=== PATIENT | female | born 1950 | race Caucasian/White ===

== ENCOUNTER → 2020-06-28 07:51 | Outpatient (REF) | payer MEDICARE, OTHER, SELFPAY | LOC: ANHLAB 07:51 | PROVIDERS: PCP Family Medicine; Visit Provider Nurse Practitioner | DX: C44.319 Basal cell carcinoma of skin of other parts of face (principal) | CPT/HCPCS: 88305; 88331 ==

== ENCOUNTER 2020-11-02 08:17 | Outpatient (CLI) | payer MEDICARE, OTHER, SELFPAY ==
--- NOTE | ~2020-11-02 | MM_ITS ---
EXAMINATION: MM screening kendall BI w cali HISTORY: Screening mammogram, history of right breast cancer TECHNIQUE: Craniocaudal and mediolateral oblique 3-D tomosynthesis images were obtained and synthetic 2-D images were generated. CAD analysis was submitted and interpreted. COMPARISON: 10/31/2019, 10/07/2018, 10/05/2017 BREAST PARENCHYMAL COMPOSITION: There are scattered areas of fibroglandular density. FINDINGS: There is no evidence of suspicious mass, calcification, or architectural distortion to sugg est malignancy in either breast. There has been no suspicious interval change. IMPRESSION: 1. No mammographic evidence of malignancy. 2. Recommend routine screening mammography in one year. BI-RADS Category 1: Negative Reviewed, dictated and finalized at location A. ZI NITRATOR OPERATOR
== END 2020-11-02 08:18 | disposition home or self-care (01) ==
PROVIDERS: PCP Family Medicine; Visit Provider Family Medicine
DX: Z12.31 Encounter for screening mammogram for malignant neoplasm of breast (principal)
CPT/HCPCS: 77063; 77067

== ENCOUNTER 2021-05-02 11:11 | Emergency (ER) | payer MEDICARE, OTHER, SELFPAY ==
--- NOTE | ~2021-05-02 | XR_ITS ---
EXAMINATION: XR foot RT min 3V EXAM DATE: 05/02/2021 11:44 INDICATION: Trauma about 1 week ago rolled foot/pain lateral on top. Initial encounter. TECHNIQUE: Right foot dorsoplantar, lateral and oblique projections obtained and reviewed. There is no prior study for comparison. FINDINGS: Right metatarsal bones unremarkable. Mild hallux valgus and mild 1st metatarsophalangeal joint primary osteoarthritis. There are no acute fractures or dislocations identified. There is no s ubcutaneous gas. The soft tissue is unremarkable. There are no radiopaque foreign bodies. Tiny ca lcaneal spurs. IMPRESSION: Mild right hallux valgus and mild 1st metatarsophalangeal joint primary osteoarthritis. N o acute findings. Reviewed, dictated and finalized at location B. IMPRESSION: Mild right hallux valgus and mild 1st metatarsophalangeal joint tamiko idalia osteoarthritis. No acute findings.
[2021-05-02 11:30] VITALS: BP 134/64; PULSE 80; RESP 18; TEMP 36.5; O2SAT 98
--- NOTE | 2021-05-02 11:30 | ED.LOWEXIN ---
HPI - Extremity Injury (Lower) General Chief Complaint: Extremity Injury, Lower Stated Complaint: right foot injury Source: patient and RN notes reviewed Mode of arrival: ambulatory History of Present Illness HPI Narrative: This is a 70-year-old woman that presented to urgent care with complaints of right foot pain and swelling status post injury. According to patient approximately last week she was walking her foot slipped and rolled afterwards she developed edema and discomfort to that. Patient did note while she was at home she iced and elevated her foot and took ibuprofen she also took some type of topical medication as opposed to prevents muscle spasms. The patient denies SOB, CP, palpitation, extremity numbness, lightheadedness, dizziness, constipation, diarrhea, chills, or fever. Related Data Home Medications Medication Instructions Recorded Confirmed aspirin 81 mg tablet,delayed 81 mg PO DAILY 06/22/20 05/02/21 release cholecalciferol (vitamin D3) 50 50 mcg PO DAILY 06/22/20 05/02/21 mcg (2,000 unit) capsule multivitamin 5 ml PO DAILY 10/25/20 05/02/21 zinc acetate 50 mg (zinc) capsule 50 mg PO DAILY 10/25/20 05/02/21 Allergies Allergy/AdvReac Type Severity Reaction Status Date / Time doxycycline Allergy Mild LIGHT Verified 10/25/20 09:33 HEADED minocycline Allergy Mild light Verified 10/25/20 09:33 headed Penicillins Allergy Mild unknown Verified 10/25/20 09:33 vancomycin Allergy Mild nausea Verified 10/25/20 09:33 MINOCYCLINE HCL Allergy Mild NAUSEA/LIGHT Uncoded 10/25/20 09:33 HEADED Review of Systems Review of Systems: Narrative: A 14 organ system Review of Systems was performed and pertinent positives included in the HPI, otherwise remaining ROS is negative. [facility] Past Medical History Medical History (Updated 05/02/21 @ 11:48 by LILIAM Murillo) Breast cancer Osteoporosis Surgical History Surgical History H/O lumpectomy H/O: hysterectomy 12/1992 Family History Family History Mother Family history of elevated blood lipids Family history of diabetes mellitus in first degree relative Hypertension Patient's mother is in good health Family history of cardiovascular disease Father Malignant neoplasm of prostate Hypertension Patient's father is in good health Family history of arthritis Sibling Patient's brother is , Onset Age: 39 Social History Social History (Updated 10/25/20 @ 09:34 by Raisa Franklin) Social History: Smoking status: Never smoker Second hand tobacco smoke exposure: No Alcohol intake: never Substance use: never Substance use type: does not use Gender identity (if verbalized by the patient): Female Exam Narrative: Exam Narrative: GENERAL: This is a well-nourished, well-developed patient, in no apparent distress. HEAD: normocephalic, atraumatic. EYES: PERRL. Sclera clear/white. Vision is grossly intact. EARS: External ears normal, auditory canals clear and without drainage, TMs normal without perforation. Hearing grossly intact. NOSE: External nose normal with no obvious nasal discharge, nares without redness, no rhinorrhea. THROAT: Mucous membranes moist, posterior pharynx clear. NECK: Neck supple, non-tender without lymphadenopathy, masses or thyromegaly. CARDIOVASCULAR: Regular rate and rhythm without murmurs, gallops, or rubs. RESPIRATORY: Clear to auscultation. Breath sounds equal bilaterally. No wheezes, rales, or rhonchi. GASTROINTESTINAL: Abdomen soft, non-tender, nondistended. Bowel sounds are active. No hepato-splenomegaly, or palpable masses. No guarding. SKIN: warm, intact with no suspicious lesions or rash, good texture and turgor. NEURO: awake, alert, and oriented to person, place and time. There were no obvious focal neurologic abnormalities. Steady gait EXTREMITIES: Norm
== END 2021-05-02 11:52 | disposition home or self-care (01) ==
PROVIDERS: Emergency Provider Nurse Practitioner; PCP Family Medicine
DX: S93.601A Unspecified sprain of right foot, initial encounter (principal); S96.911A Strain of unspecified muscle and tendon at ankle and foot level, right foot, initial encounter; X50.9XXA Other and unspecified overexertion or strenuous movements or postures, initial encounter; M81.0 Age-related osteoporosis without current pathological fracture; Z85.3 Personal history of malignant neoplasm of breast
CPT/HCPCS: 73630; 99213; G0463

== ENCOUNTER → 2021-07-19 12:31 | Outpatient (CLI) | payer MEDICARE, OTHER, SELFPAY ==
--- NOTE | ~2021-07-19 | XR_ITS ---
EXAMINATION: XR chest 2V DATE: 07/19/2021 13:01 INDICATION: Personal history of COVID 19 TECHNIQUE: AP and lateral views of the chest are obtained. COMPARISON: None available FINDINGS: There are minimal airspace opacities right lung base. There is no pleural effusion or pneum othorax. The cardiomediastinal silhouette is normal. Age-indeterminate compression fractures are pres ent in the thoracic spine. IMPRESSION: 1. Minimal right basilar airspace opacity, consistent with atelectasis versus pneumonia. Reviewed, dictated and finalized at location A. IMPRESSION: 1. Minimal right basilar airspace opacity, consistent with atelectasis versus p neumonia.
== END ==
PROVIDERS: PCP Family Medicine; Visit Provider Family Medicine
DX: Z09 Encounter for follow-up examination after completed treatment for conditions other than malignant neoplasm (principal); Z86.16 Personal history of COVID-19
CPT/HCPCS: 71046

== ENCOUNTER 2022-03-03 07:59 | Outpatient (CLI) | payer MEDICARE, OTHER, SELFPAY ==
--- NOTE | ~2022-03-03 | MM_ITS ---
EXAMINATION: MM screening kendall BI w cali HISTORY: Screening TECHNIQUE: Craniocaudal and mediolateral oblique 3-D tomosynthesis images were obtained and synthetic 2-D images were generated. CAD analysis was submitted and interpreted. COMPARISON: Comparison to multiple prior studies sequentially, with oldest reviewed study dated 07/2010. BREAST PARENCHYMAL COMPOSITION: Breast composed of scattered areas of fibroglandular density FINDINGS: Bilateral breast asymmetries are stable. There is no evidence of suspicious mass, calcifica tion, or architectural distortion to suggest malignancy in either breast. There has been no suspiciou s interval change. IMPRESSION: 1. No mammographic evidence of malignancy. 2. Recommend routine screening mammography in one year. BI-RADS Category 1: Negative Reviewed, dictated and finalized at location A.
--- NOTE | ~2022-03-03 | DEXA_ITS ---
Bone Density Report Name: YULIANA BORDEN Age: 71 Sex: Female Ethnicity: White Date of : 1950 Indication: postmenopausal osteoporosis; monitoring treatment; height loss; cancer; hysterectomy; Referring Provider: LISA CONTI Study: Bone densitometry was performed. Exam Date: March 03, 2022 Accession number: [id number] Bone Density: Region BMD T-score Z-score Classification AP Spine(L1-L4) 0.669 -3.4 -1.4 Osteoporosis Femoral Neck (Left) 0.557 -2.6 -0.9 Osteoporosis Total Hip (Left) 0.619 -2.7 -1.2 Osteoporosis Femoral Neck (Right) 0.548 -2.7 -1.0 Osteoporosis Total Hip (Right) 0.613 -2.7 -1.2 Osteoporosis Total Hip Mean 0.616 -2.7 -1.2 Osteoporosis World Health Organization criteria for BMD impression classify patients as: Normal (T-score at or above -1.0), Osteopenia (T-score between -1.0 and -2.5), or Osteoporosis (T-score at or below -2.5). 10-year Fracture Risk: FRAX not reported because: Some T-score for Spine Total or Hip Total or Femoral Neck at or below -2.5 Treated for osteoporosis Previous Exams: Region Exam Age BMD T-score BMD Change BMD Change Date g/cm2 vs Baseline vs Previous AP Spine(L1-L4) 03/03/2022 71 0.669 -3.4 -0.022(-3.2%)# -0.022(-3.2%)# 10/31/2019 68 0.692 -3.2 Total Hip(Left) 03/03/2022 71 0.619 -2.7 -0.043(-6.6%)# -0.043(-6.6%)# 10/31/2019 68 0.662 -2.3 Total Hip(Right) 03/03/2022 71 0.613 -2.7 -0.076(-11.1%) -0.076(-11.1%) 10/31/2019 68 0.689 -2.1 *Denotes significance at 95% confidence level, LSC for AP Spine = 0.022 g/cm2, LSC for Total Hip = 0.027 g/cm2 # Denotes dissimilar scan types or analysis methods Clinical Information Provided by Patient: Is being treated for osteoporosis Has used the following medications: Actonel (i.e. risedronate), Fosamax (i.e. alendronate), Vitamin D, Calcium Has the following medical conditions: Cancer, Hysterectomy Patient maximum height was 65 Menopause Age: 42 Drinks caffeinated beverages Onset of menses at age 15 Number of children 0 Impression: The patient has osteoporosis, based on the Total Spine T-score. No significant bone loss was observed. Discussion: PATIENT UNDER TREATMENT WITH NO SIGNIFICANT BMD LOSS SINCE LAST EXAM. In an untreated patient, BMD typically declines with age. A lack of decline or gain is usually a sign that treatment is efficacious and fracture risk is reduced. It is important to ask patients whether they
== END 2022-03-03 08:00 | disposition home or self-care (01) ==
PROVIDERS: PCP Family Medicine; Visit Provider Family Medicine
DX: Z12.31 Encounter for screening mammogram for malignant neoplasm of breast (principal); Z78.0 Asymptomatic menopausal state; M81.0 Age-related osteoporosis without current pathological fracture
CPT/HCPCS: 77063; 77067; 77080

== ENCOUNTER → 2022-04-28 15:30 | Outpatient (CLI) | payer MEDICARE, OTHER, SELFPAY ==
--- NOTE | ~2022-04-28 | XR_ITS ---
XR lumbar spine 2-3V DATE: 04/28/2022 15:53 INDICATION: Back pain TECHNIQUE: AP, lateral and coned lateral lumbosacral views COMPARISON: 02/17/2007 lumbar spine FINDINGS: There is diffuse prominent osteopenia. Minimal thoracolumbar levoscoliosis. The lumbar pedicles are intact. No fracture or bone destruction of the lumbar spine is evident. There is degenerative change at the apophyseal joints particularly L4-5 and L5-S1 with associated min imal grade 1 anterolisthesis at L4-5. Lumbar and lumbosacral interspaces are relatively well preserved. There is some patchy sclerosis of the left upper sacral body, new since 02/17/2007. Differential diagno sis includes healing sacral fracture, osteosclerotic metastasis. Is considered unlikely. Consider further evaluation with CT or MR examination. The sacroiliac joints and pubic symphysis are intact. IMPRESSION: New patchy sclerotic area of proximal body of left sacrum (S1 and S2); consider CT or MR for further evaluation. Prominent diffuse osteopenia Minimal thoracolumbar levoscoliosis Degenerative change at the lower lumbar and lumbosacral apophyseal joints with associated minimal gra de 1 anterolisthesis at L4-5 Reviewed, dictated and finalized at location A. IMPRESSION: New patchy sclerotic area of proximal body of left sacrum (S1 and S 2); consider CT or MR for further evaluation. Prominent diffuse osteopenia Minimal thoracolumbar levoscoliosis Degenerative change at the lower lumbar and lumbosacral apophyseal joints with associated minimal grade 1 anterolisthesis at L4-5
== END ==
PROVIDERS: PCP Family Medicine; Visit Provider Family Medicine
DX: M54.9 Dorsalgia, unspecified (principal); M89.9 Disorder of bone, unspecified; M85.89 Other specified disorders of bone density and structure, multiple sites; M41.85 Other forms of scoliosis, thoracolumbar region; M43.16 Spondylolisthesis, lumbar region
CPT/HCPCS: 72100

== ENCOUNTER → 2022-05-09 08:08 | Outpatient (CLI) | payer MEDICARE, OTHER, SELFPAY ==
--- NOTE | ~2022-05-09 | CT_ITS ---
EXAMINATION: CT lumbar spine wo con DATE: 05/09/2022 08:33 INDICATION: Right sided low back pain and right buttock pain. Sclerosis in the sacrum. TECHNIQUE: Computed tomography (CT) of the lumbar spine was performed without intravenous contrast. A utomated exposure control and iterative reconstruction technique were employed. The dose-length produ ct was 654.30 mGy-cm. COMPARISON: Lumbar spine radiograph 04/28/2022 FINDINGS: There is 4 degrees levocurvature of lumbar spine. Vertebral body heights are normal. Interv ertebral disc heights are normal. There is sclerosis in the sacral ala bilaterally, consistent with h ealing insufficiency fractures. The following disc levels are specifically discussed: L1-L2: The disc does not extend beyond the endplate margin. There is mild bilateral facet joint osteo arthritis. There is no neural foraminal stenosis. There is no central canal stenosis. L2-L3: The disc does not extend beyond the endplate margin. There is mild bilateral facet joint osteo arthritis. There is no neural foraminal stenosis. There is no central canal stenosis. L3-L4: The disc is bulging. There is moderate bilateral facet joint osteoarthritis. There is mild maru ateral neural foraminal stenosis. There is no central canal stenosis. L4-L5: The disc does not extend beyond the endplate margin. There is severe bilateral facet joint ost eoarthritis. There is no neural foraminal stenosis. There is no central canal stenosis. L5-S1: The disc does not extend beyond the endplate margin. There is moderate right and severe left f acet joint osteoarthritis. There is no neural foraminal stenosis. There is no central canal stenosis. IMPRESSION: 1. Healing bilateral sacral insufficiency fractures correlating with the radiographic abnormality. 2. Mild lumbar spondylosis. Reviewed, dictated and finalized at location A. IMPRESSION: 1. Healing bilateral sacral insufficiency fractures correlating with the radiog raphic abnormality. 2. Mild lumbar spondylosis.
== END ==
PROVIDERS: PCP Family Medicine; Visit Provider Nurse Practitioner Gerontology
DX: M54.9 Dorsalgia, unspecified (principal); R93.89 Abnormal findings on diagnostic imaging of other specified body structures; M47.816 Spondylosis without myelopathy or radiculopathy, lumbar region; S32.19XD Other fracture of sacrum, subsequent encounter for fracture with routine healing
CPT/HCPCS: 72131

== ENCOUNTER 2023-05-03 08:14 | Outpatient (CLI) | payer MEDICARE, OTHER, SELFPAY ==
--- NOTE | ~2023-05-03 | MM_ITS ---
EXAMINATION: MM screening kendall BI w cali HISTORY: Screening mammogram TECHNIQUE: Craniocaudal and mediolateral oblique 3-D tomosynthesis images were obtained and synthetic 2-D images were generated. CAD analysis was submitted and interpreted. COMPARISON: 03/03/2022, 11/02/2020, 10/31/2019 bilateral screening mammogram examinations BREAST PARENCHYMAL COMPOSITION: There are scattered areas of fibroglandular density. FINDINGS: There is a biopsy marker on the right; prior benign breast biopsy. There is no evidence of suspicious mass, calcification, or architectural distortion to suggest malignancy in either breast. T here has been no suspicious interval change. IMPRESSION: 1. No mammographic evidence of malignancy. 2. Recommend routine screening mammography in one year. BI-RADS Category 1: Negative Reviewed, dictated and finalized at location A.
== END 2023-05-03 08:15 | disposition home or self-care (01) ==
LOC: ANHIMG 08:18
PROVIDERS: PCP Family Medicine; Visit Provider Family Medicine
DX: Z12.31 Encounter for screening mammogram for malignant neoplasm of breast (principal)
CPT/HCPCS: 77063; 77067

== ENCOUNTER 2024-05-21 08:24 | Outpatient (CLI) | payer MEDICARE, OTHER, SELFPAY ==
--- NOTE | ~2024-05-21 | MM_ITS ---
EXAMINATION: MM screening kendall BI w cali HISTORY: Screening mammogram TECHNIQUE: Craniocaudal and mediolateral oblique 3-D tomosynthesis images were obtained and synthetic 2-D images were generated. CAD analysis was submitted and interpreted. COMPARISON: 05/03/2023, 03/03/2022, 11/02/2020 BREAST PARENCHYMAL COMPOSITION:Dense: The breasts are heterogeneously dense, which may obscure small masses. FINDINGS: No suspicious mass, calcification, or architectural distortion are identified in either gildardo ast to suggest malignancy. There has been no suspicious interval change. IMPRESSION: No mammographic evidence of malignancy. Recommend routine screening mammography in one year. BI-RADS Category 1: Negative Reviewed, dictated and finalized at location .
== END 2024-05-21 08:25 | disposition home or self-care (01) ==
LOC: ANHIMG 08:26
PROVIDERS: PCP Family Medicine; Visit Provider Family Medicine
DX: Z12.31 Encounter for screening mammogram for malignant neoplasm of breast (principal)
CPT/HCPCS: 77063; 77067

== ENCOUNTER 2025-06-09 08:30 | Outpatient (CLI) | payer MEDICARE, SELFPAY ==
--- NOTE | ~2025-06-09 | MM_ITS ---
EXAMINATION: MM screening kendall BI w cali HISTORY: Screening TECHNIQUE: Craniocaudal and mediolateral oblique 3-D tomosynthesis images were obtained and synthetic 2-D images were generated. CAD analysis was submitted and interpreted. COMPARISON: Comparison to multiple prior studies sequentially, with oldest reviewed study dated 10/19. BREAST PARENCHYMAL COMPOSITION: There are scattered areas of fibroglandular density. FINDINGS: There is no evidence of suspicious mass, calcification, or architectural distortion to sug gest malignancy in either breast. Scattered benign-appearing calcifications are present. Biopsy clip in the right breast. IMPRESSION: 1. No mammographic evidence of malignancy. 2. Recommend routine screening mammography in one year. BI-RADS Category 2: Benign finding(s). Reviewed, dictated and finalized at location B.
--- OUTSIDE RECORDS SUMMARY | 2025-06-09 08:36 | XMS_ITS | Encounter Summary ---
Author Organization [facility] Address [address] [place] [address] Care Team Providers Care Bar Roller Name Role Phone Praveen Wallace MD Primary Care Provider [phone] Encounter Details Date Type Department Care Team (Late st Contact Info) Description 07/14/2020 Lab Requisition [facility] DermPath Lab [address] [place] [address] Oliver Escobar MD [address] [facility] [place] [address] Social History Tobacco Use Types Packs/Day Years Used Date Smoking Tobacco: Never Assessed Comments Unknown Sex and Gender Information Value Date Recorded Sex Assigned at Not on file Legal Sex Female 4:15 PM CDT Gender Identity Not on file Sexual Orientation Not on file documented as of this encounter Plan of Treatment Not on file documented as of this encounter Procedures Procedure Name Priority Date/Time Associated Diagnosis Comments DERMATOPATHOLOGY Routine 07/14/2020 12:0 0 AM CDT documented in this encounter Results * DERMATOPATHOLOGY (07/14/2020 12:00 AM CDT) Case Report Dermatopathology Report Case: [id number] Authorizing Provider: Oliver Escobar MD Collected: 07/14/2020 12:00 AM Ordering Location: [facility] DermPath Lab Received: 07/14/2020 03:57 PM Pathologist: Ana Dial MD Specimen: Skin, left scapula 0 4:26 PM CDT DERMATOPATHOLOGY LABORATORY Final Diagnosis Specimen A. SKIN, left scapula: BASAL CELL CARCINOMA (C44.519) NOT PRESENT AT MARGIN DERMAL SCAR (L90.5) 0 4:26 PM CDT DERMATOPATHOLOGY LABORATORY at 1626 CDT Clinical History BCCA, nod. Check margins. 0 4:26 PM CDT DERMATOPATHOLOGY LABORATORY Gross Description Specimen A: Received is one formalin filled container labeled with the patient's name and designated left scapula. The specimen consists of a non-oriented ellipse of skin measuring [id number]. The epidermal surface consists of a centrally located 3x3mm previous biopsy site. The margin is inked green. The 12 o'clock and 6 o'clock tips are submitted in cassette 1. The remainder of the ellipse is serially sectioned and submitted in cassettes 2-3. Jar 0. 0 4:26 PM CDT DERMATOPATHOLOGY LABORATORY Microscopic Description Specimen A. SKIN, left scapula: Within the dermis there are aggregates of basaloid cells with a high nuclear to cytoplasmic ratio and peripheral palisading. This lesion is not present at the margin of the specimen. There are fibroblasts and collagen bundles oriented parallel to the skin surface with elongated blood vessels, some of which are oriented perpendicular to the skin surface. 0 4:26 PM CDT DERMATOPATHOLOGY LABORATORY Disclaimer An external and internal positive and negative controls are appropriate for the histochemical, immunohistochemical and immunofluorescence stain(s) in this case (if any), except where stated explicitly. The performance characteristics of the stain(s) cited in this report were developed and its performance characteristic determined by the Dermatopathology Laboratory at [facility], directed by Dr. Ronny Mora. These tests need not be, and therefore are not, approved by the [place] Food and Drug Administration. The tests are used for clinical purposes. Billing Codes Specimen Charges Stain Charges 88666 1 0 4:26 PM CDT DERMATOPATHOLOGY LABORATORY Embedded Images 0 4:26 PM CDT DERMATOPATHOLOGY LABORATORY Pathology/Cytolog y TISSUE SPECIMEN FROM SKIN / Unknown 07/14/2020 07/14/2020 3:57 PM CDT us Oliver Escobar MD LAB - PATHOLOGY/CYTOLOGY ORDER EDILBERTO Final Result DERMATOPATHOLOGY LABORATORY [facility] - Department of Dermatology [employer] [address], [facility] [phone] documented in this encounter Visit Diagnoses Not on filedocumented in this encounter Care Teams Bar Roller Relationship Specialty Start Date End Date Praveen Wallace MD [address] [facility] [address] [place] [address] PCP - General 06/02/20 documented as of this encounter
--- OUTSIDE RECORDS SUMMARY | 2025-06-09 08:36 | XMS_ITS | Encounter Summary ---
Author Organization [facility] Address [address] [place] [address] Care Team Providers Care Chair Lift Operator Name Role Phone Praveen Wallace MD Primary Care Provider [phone] Encounter Details Date Type Department Care Team (Late st Contact Info) Description 04/06/2023 Lab Requisition [facility] - DermPath Lab [address] [facility] [place] [place] [address] Oliver Escobar MD [address] [place] [address] Social History Tobacco Use Types [...] Priority Date/Time Associated Diagnosis Comments DERMATOPATHOLOGY Routine 04/05/2023 12:0 0 AM CDT documented in this encounter Results * DERMATOPATHOLOGY (04/05/2023 12:00 AM CDT) Case Report Dermatopathology Report Case: [id number] Authorizing Provider: Oliver Escobar MD Collected: 04/05/2023 12:00 AM Ordering Location: [facility] DermPath Lab Received: 04/06/2023 07:31 AM Pathologist: Leticia Wheeler MD Specimen: Skin, left posterior knee 3 1:49 PM CDT DERMATOPATHOLOGY LABORATORY Final Diagnosis Specimen A. 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 The specimen consists of a shave biopsy measuring 9x6x2 mm. Jar 0. 3 1:49 PM CDT DERMATOPATHOLOGY LABORATORY Microscopic Description Specimen A. SKIN, left posterior knee: The epidermis is hyperkeratotic. High in the dermis and partially surrounded by elongated rete ridges there are dilated vascular spaces lined by flattened endothelial cells containing erythrocytes. 1:49 PM CDT DERMATOPATHOLOGY LABORATORY Disclaimer An external [...] purposes. Billing Codes Specimen Charges Stain Charges 47006 1 3 1:49 PM CDT DERMATOPATHOLOGY LABORATORY Embedded Images 3 1:49 PM CDT DERMATOPATHOLOGY LABORATORY Pathology/Cytolog y TISSUE SPECIMEN FROM SKIN / Unknown 04/05/2023 04/06/2023 7:31 AM CDT us Oliver Escobar MD LAB - PATHOLOGY/CYTOLOGY ORDER EDILBERTO Final Result DERMATOPATHOLOGY LABORATORY [facility] - Department of Dermatology [address] [phone] documented in this encounter Visit Diagnoses Not on filedocumented in this encounter Care Teams Chair Lift Operator Relationship Specialty Start Date End Date Praveen Wallace MD [address] [facility] [address] [facility] [address] [place] [id number] PCP - General 06/02/20 documented as of this encounter
--- OUTSIDE RECORDS SUMMARY | 2025-06-09 08:36 | XMS_ITS | Encounter Summary ---
Author Organization [facility] Address [address] [facility] [place] [address] Care Team Providers Care Cable Installer Repairer Helper Name Role Phone Praveen Wallace MD Primary Care Provider [phone] Encounter Details Date Type Department Care Team (Late st Contact Info) Description 06/20/2021 Lab Requisition [facility] DermPath Lab [address] [place] [id number] Oliver Escobar MD [address] [facility] [place] [address] Social History Tobacco Use Types [...] Priority Date/Time Associated Diagnosis Comments DERMATOPATHOLOGY Routine 06/16/2021 3:33 AM CDT documented in this encounter Results * DERMATOPATHOLOGY (06/16/2021 3:33 AM CDT) Case Report Dermatopathology Report Case: [id number] Authorizing Provider: Oliver Escobar MD Collected: 06/16/2021 03:33 AM Ordering Location: [facility] Care DermPath Lab Received: 06/20/2021 08:48 AM Pathologist: Mone Mora MD Specimens: A) - Skin, right upper chest B) - Skin, left medial bell 3:01 PM T DERMATOPATHOLOGY LABORATORY Final Diagnosis Specimen A. SKIN, right upper chest: BASAL CELL CARCINOMA, SUPERFICIAL MULTIFOCAL (C44.519) Specimen B. SKIN, left medial bell: BASAL CELL CARCINOMA, NODULAR TYPE (C44.719) 3:01 PM CDT DERMATOPATHOLOGY LABORATORY at 1501 CDT Clinical History A: BCCA. Path# [id number]. B: BCCA. Path# [id number]. 3:01 PM CDT DERMATOPATHOLOGY LABORATORY Gross Description Specimen A: Received is one formalin filled container labeled with the patient's name and designated right upper chest. The specimen consists of a shave biopsy measuring [id number]. Jar 0. Specimen B: Received is one formalin filled container labeled with the patient's name and designated left medial bell. The specimen consists of a shave biopsy measuring [id number]. Jar 0. 3:01 PM T DERMATOPATHOLOGY LABORATORY Microscopic Description Specimen A. SKIN, right upper chest: Attached to the undersurface of the epidermis, there are small aggregates of basaloid cells with a high nuclear to cytoplasmic ratio and peripheral palisading. Specimen B. SKIN, left medial bell: Within the dermis there are aggregates of basaloid cells with a high nuclear to cytoplasmic ratio and peripheral palisading. 3:01 PM T DERMATOPATHOLOGY LABORATORY Disclaimer An external and internal positive and negative controls are appropriate for the histochemical, immunohistochemical and immunofluorescence stain(s) in this case (if any), except where stated explicitly. The performance characteristics of the stain(s) cited in this report were developed and its performance characteristic determined by the Dermatopathology Laboratory at [facility], directed by Dr. Ronny Mora. These tests need not be, and therefore are not, approved by the [place] Food and Drug Administration. The tests are used for clinical purposes. Billing Codes Specimen Charges Stain Charges 54963 28041 1 1 3:01 PM CDT DERMATOPATHOLOGY LABORATORY Embedded Images 3:01 PM T DERMATOPATHOLOGY LABORATORY Pathology/Cytology TISSUE SPECIMEN FROM SKIN / Unknown 06/16/2021 3:33 AM CDT 06/20/2021 8:48 AM CDT Miscellaneous samples (specimen) TISSUE SPECIMEN FROM SKIN / Unknown 06/16/2021 3:33 AM CDT 06/20/2021 8:48 AM CDT us Oliver Escobar MD LAB - PATHOLOGY/CYTOLOGY ORDER EDILBERTO Final Result DERMATOPATHOLOGY LABORATORY [facility] - Department of Dermatology [facility] [address] [place] [address], [address] [phone] documented in this encounter Visit Diagnoses Not on filedocumented in this encounter Care Teams Cable Installer Repairer Helper Relationship Specialty Start Date End Date Praveen Wallace MD [address] [place] [address] PCP - General 06/02/20 documented as of this encounter
--- OUTSIDE RECORDS SUMMARY | 2025-06-09 08:36 | XMS_ITS | Clinical Summary ---
Author Organization [facility] Address [address] [place] [address] Care Team Providers Care Driver Supervisor Name Role Phone Verónica Pagan MD Primary Care Provider [phone] Social History Tobacco Use Types Packs/Day Years Used Date Smoking Tobacco: Never Assessed Comments Unknown Sex and Gender Information Value Date Recorded Sex Assigned at Not on file Legal Sex Female 9:22 AM CDT Gender Identity Not on file Sexual Orientation Not on file Plan of Treatment Health Maintenance Due Date Last Done Comments Colorectal Cancer Screening Colonoscopy (10 Years) 1952 Hepatitis C 1970 DTaP, Tdap and Td Vaccines ( 1 - Tdap) 1971 Mammogram Screening 1992 Pneumococcal Vaccine: 50+ Ye ars (1 of 1 - PCV) 2002 Zoster Vaccines (1 of 2) 2002 Annual Medicare Wellness Visit 2017 Dexa Scan (General) 2017 COVID-19 Vaccine ( - 2023-2 5 season) 2024 RSV Immunization or 60+ Years (1 - 1-dose 75+ series) 2027 Meningococcal B Vaccine Aged Out No l onger eligible based on patient's age to complete this topic Meningococcal Vaccine Aged Out No mer genoveva eligible based on patient's age to complete this topic RSV Immunizations Under 20 Months Aged Out No longer eligible based on patient's age to complete this topic Insurance [employer] Care Teams Driver Supervisor Relationship Specialty Start Date End Date Verónica Pagan MD [address] [facility] [address] [place] [address] PCP - General FAMILY PRACTICE 05/24/21
--- OUTSIDE RECORDS SUMMARY | 2025-06-09 08:36 | XMS_ITS | Encounter Summary ---
Author Organization [facility] Address [address] [facility] [place] [address] Care Team Providers Care Spanish Instructor Name Role Phone Praveen Wallace MD Primary Care Provider [phone] Encounter Details Date Type Department Care Team (Late st Contact Info) Description 06/03/2020 Lab Requisition [facility] DermPath Lab [address] [place] [phone] Oliver Escobar MD [address] [facility] [place] [address] Social History Tobacco Use Types [...] Priority Date/Time Associated Diagnosis Comments DERMATOPATHOLOGY Routine 06/01/2020 12:0 0 AM CDT documented in this encounter Results * DERMATOPATHOLOGY (06/01/2020 12:00 AM CDT) Case Report Dermatopathology Report Case: [id number] Authorizing Provider: Oliver Escobar MD Collected: 06/01/2020 12:00 AM Ordering Location: [facility] DermPath Lab Received: 06/03/2020 08:00 AM Pathologist: Mone Mora MD Specimens: A) - Skin, left lateal cheek B) - Skin, left scapula 0 4:53 PM CDT DERMATOPATHOLOGY LABORATORY Final Diagnosis Specimen A. SKIN, left lateal cheek: BASAL CELL CARCINOMA, INFILTRATIVE PATTERN (C44.319) Specimen B. SKIN, left scapula: BASAL CELL CARCINOMA, NODULAR TYPE (C44.619) 0 4:53 PM CDT DERMATOPATHOLOGY LABORATORY at 1653 CDT Clinical History A-B: BCCA 0 4:53 PM CDT DERMATOPATHOLOGY LABORATORY Gross Description Specimen A: Received is one formalin filled container labeled with the patient's name and designated left lateal cheek. The specimen consists of a shave biopsy measuring 5x5x1 mm. Jar 0. Specimen B: Received is one formalin filled container labeled with the patient's name and designated left scapula. The specimen consists of a shave biopsy measuring 5x5x1 mm. Jar 0. 0 4:53 PM CDT DERMATOPATHOLOGY LABORATORY Microscopic Description Specimen A. SKIN, left lateal cheek: Within the dermis there are nodular aggregates of basaloid cells associated with fibromyxoid stroma and epithelial-stromal clefts. At the advancing margin of the neoplasm, there are smaller angulated nests that infiltrate the dermis. Specimen B. SKIN, left scapula: Within the dermis there are aggregates of basaloid cells with a high nuclear to cytoplasmic ratio and peripheral palisading. 0 4:53 PM CDT DERMATOPATHOLOGY LABORATORY Disclaimer An external and internal positive and negative controls are appropriate for the histochemical, immunohistochemical and immunofluorescence stain(s) in this case (if any), except where stated explicitly. The performance characteristics of the stain(s) cited in this report were developed and its performance characteristic determined by the Dermatopathology Laboratory at [facility], directed by Dr. Ronny Mora. These tests need not be, and therefore are not, approved by the [place] Food and Drug Administration. The tests are used for clinical purposes. Billing Codes Specimen Charges Stain Charges 51522 93122 1 1 0 4:53 PM CDT DERMATOPATHOLOGY LABORATORY Embedded Images 0 4:53 PM CDT DERMATOPATHOLOGY LABORATORY Pathology/Cytology TISSUE SPECIMEN FROM SKIN / Unknown 06/01/2020 06/03/2020 8:00 AM CDT Miscellaneous samples (specimen) TISSUE SPECIMEN FROM SKIN / Unknown 06/01/2020 06/03/2020 8:00 AM CDT us Oliver Escobar MD LAB - PATHOLOGY/CYTOLOGY ORDER EDILBERTO Final Result DERMATOPATHOLOGY LABORATORY [facility] - Department of Dermatology [facility]/[address] [phone] documented in this encounter Visit Diagnoses Not on filedocumented in this encounter Care Teams Spanish Instructor Relationship Specialty Start Date End Date Praveen Wallace MD [address] [facility] [address] [place] [address] PCP - General 06/02/20 documented as of this encounter
--- OUTSIDE RECORDS SUMMARY | 2025-06-09 08:36 | XMS_ITS | Encounter Summary ---
Author Organization [facility] Address [address] [facility] [place] [address] Care Team Providers Care Silo Erector Name Role Phone Praveen Wallace MD Primary Care Provider [phone] Encounter Details Date Type Department Care Team (Late st Contact Info) Description 03/07/2022 Lab Requisition [facility] Care DermPath Lab [address] [place] [address] Oliver Escobar MD [address] [place] [address] Social History Tobacco Use Types [...] Priority Date/Time Associated Diagnosis Comments DERMATOPATHOLOGY Routine 03/07/2022 12:0 0 AM CDT documented in this encounter Results * DERMATOPATHOLOGY (03/07/2022 12:00 AM CDT) Case Report Dermatopathology Report Case: [id number] Authorizing Provider: Oliver Escobar MD Collected: 03/07/2022 12:00 AM Ordering Location: [facility] Care DermPath Lab Received: 03/07/2022 03:24 PM Pathologist: Ana Dial MD Specimens: A) - Skin, right posterior shoulder B) - Skin, right mid bell 2 4:02 PM CDT DERMATOPATHOLOGY LABORATORY Final Diagnosis Specimen A. SKIN, right posterior shoulder: DERMATOFIBROMA, SUPERFICIAL PORTIONS OF (D23.9) (see microscopic description) Specimen B. SKIN, right mid bell: BASAL CELL CARCINOMA, SUPERFICIAL MULTIFOCAL (C44.712) 2 4:02 PM CDT DERMATOPATHOLOGY LABORATORY at 1602 CDT Clinical History A: BCCA Path# [id number] B: BCCA Path# [id number] 2 4:02 PM CDT DERMATOPATHOLOGY LABORATORY Gross Description Specimen A: Received is one formalin filled container labeled with the patient's name and designated right posterior shoulder. The specimen consists of a shave biopsy measuring 9p5a7fr. Jar 0. Specimen B: Received is one formalin filled container labeled with the patient's name and designated right mid bell. The specimen consists of a shave biopsy measuring 4m6e9er. Jar 0. 2 4:02 PM CDT DERMATOPATHOLOGY LABORATORY Microscopic Description Specimen A. SKIN, right posterior shoulder: There is epidermal hyperplasia. Within the dermis, there are superficial portions of fibrohistiocytic cells in haphazard array among coarse collagen bundles. Specimen B. SKIN, right mid bell: Attached to the undersurface of the epidermis, there are small aggregates of basaloid cells with a high nuclear to cytoplasmic ratio and peripheral palisading. 2 4:02 PM CDT DERMATOPATHOLOGY LABORATORY Disclaimer An external and internal positive and negative controls are appropriate for the histochemical, immunohistochemical and immunofluorescence stain(s) in this case (if any), except where stated explicitly. The performance characteristics of the stain(s) cited in this report were developed and its performance characteristic determined by the Dermatopathology Laboratory at [facility], directed by Dr. Ronny Mora. These tests need not be, and therefore are not, approved by the [place] Food and Drug Administration. The tests are used for clinical purposes. Billing Codes Specimen Charges Stain Charges 85062 63020 1 1 2 4:02 PM CDT DERMATOPATHOLOGY LABORATORY Embedded Images 2 4:02 PM CDT DERMATOPATHOLOGY LABORATORY Pathology/Cytology TISSUE SPECIMEN FROM SKIN / Unknown 03/07/2022 03/07/2022 3:24 PM CDT Miscellaneous samples (specimen) TISSUE SPECIMEN FROM SKIN / Unknown 03/07/2022 03/07/2022 3:24 PM CDT us Oliver Escobar MD LAB - PATHOLOGY/CYTOLOGY ORDER EDILBERTO Final Result DERMATOPATHOLOGY LABORATORY [facility] - Department of Dermatology [facility] [address] [place] [address], [address] [phone] documented in this encounter Visit Diagnoses Not on filedocumented in this encounter Care Teams Silo Erector Relationship Specialty Start Date End Date Praveen Wallace MD [address] [facility] [address] [place] [address] PCP - General 06/02/20 documented as of this encounter
--- OUTSIDE RECORDS SUMMARY | 2025-06-09 08:36 | XMS_ITS | Clinical Summary ---
Author Organization [facility] Address [address] [place] [address] Care Team Providers Care Lifestyle Director Name Role Phone Praveen Wallace MD Primary Care Provider [phone] Source Comments [facility],non-owned Affiliates and Associated Physician Practices is amultiple site organization consisting of ambulatory clinics and hospital sitesin [place], [place], [place] and [place]. This disclosure is being madepursuant to the Care Everywhere program and may not contain all information available regarding this patient. Last updated 18.[facility] [employer] Social History Tobacco Use Types Packs/Day Years Used Date Smoking Tobacco: Never Assessed Comments Unknown Sex and Gender Information Value Date Recorded Sex Assigned at Not on file Legal Sex Female 4:15 PM CDT Gender Identity Not on file Sexual Orientation Not on file Plan of Treatment Health Maintenance Due Date Last Done Comments BONE DENSITY TESTING 1950 COLOGUARD (AGES 45-75) - COL ON CA SCREENING 1952 COLON MONITORING 1952 COLONOSCOPY - COLON CA SCREENING 1952 CT COLONOGRAPHY - COLON CA SCREENING 1950 Colorectal Cancer Screening 1952 FIT - COLON CA SCREENING 1952 FLEX SIG - COLON CA SCREENING 1952 LIPID TESTING 1950 MAMMOGRAM 1950 MEDICARE AWV 12 MONTHS 1952 HEPATITIS C SCREENING 11/26/1970 DTAP/TDAP/TD VACCINES (1 - Tdap) 1971 PNEUMOCOCCAL VACCINE 50+ (1 of 1 - PCV) 2002 ZOSTER VACCINE (1 of 2) 2002 COVID-19 VACCINE (1 - 2023-2 5 season) 2024 DEPRESSION SCREENING 11/19/2024 INFLUENZA VACCINE (#1) 2025 Respiratory Syncytial Virus (RSV) Vaccine Pt: or over 60 yrs (1 - 1-dose 75+ series) 2027 HEPATITIS B VACCINE Aged Out No longe r eligible based on patient's age to complete this topic HIB VACCINE Aged Out No longer eligi ble based on patient's age to complete this topic HPV VACCINE Aged Out No longer eligi ble based on patient's age to complete this topic MENINGOCOCCAL (Group B) VACC INE SHARED DECISION-MAKING Aged Out No longer eligibl e based on patient's age to complete this topic MENINGOCOCCAL GROUPS A/C/Y/W VACCINE Aged Out No longer eligible b ased on patient's age to complete this topic Insurance [employer] Care Teams Lifestyle Director Relationship Specialty Start Date End Date Praveen Wallace MD [address] [facility] [address] [place] [address] PCP - General 06/02/20
== END 2025-06-09 08:31 | disposition home or self-care (01) ==
LOC: ANHIMG 08:32
PROVIDERS: PCP Family Medicine; Visit Provider Family Medicine
DX: Z12.31 Encounter for screening mammogram for malignant neoplasm of breast (principal)
CPT/HCPCS: 77063; 77067

== ENCOUNTER 2025-09-11 12:18 | Outpatient (CLI) | payer MEDICARE, OTHER, SELFPAY ==
--- OUTSIDE RECORDS SUMMARY | 2025-09-11 12:23 | XMS_ITS | Clinical Summary ---
Author Organization [facility] Address [address] [place] [address] Care Team Providers Care Health Care Analyst Name Role Phone Verónica Pagan MD Primary Care Provider [phone] Social History Tobacco Use Types Packs/Day Years [...] Scan (General) 2017 COVID-19 Vaccine ( - 2024-2 6 season) 2025 Influenza Adult (#1) 2025 RSV Immunization or 60+ Years (1 - 1-dose 75+ series) 2027 Hepatitis A Vaccines Aged Out No long er eligible based on patient's age to complete this topic Meningococcal B Vaccine Aged Out No l onger eligible based on patient's age to complete this topic Meningococcal Vaccine Aged Out No mer genoveva eligible based on patient's age to complete this topic RSV Immunizations Under 20 Months Aged Out No longer eligible based on patient's age to complete this topic Insurance [employer] Care Teams Health Care Analyst Relationship Specialty Start Date End Date Verónica Pagan MD [address] [facility] [address] [place] [address] PCP - General FAMILY PRACTICE 05/24/21
--- OUTSIDE RECORDS SUMMARY | 2025-09-11 12:23 | XMS_ITS | Clinical Summary ---
Author Organization [facility] Address [address] [facility] [place] [address] Care Team Providers Care Sheet Metal Duct Installer Apprentice Name Role Phone Praveen Wallace MD Primary Care Provider [phone] Source Comments [facility],non-owned Affiliates and Associated Physician Practices is amultiple site organization consisting of ambulatory clinics and hospital sitesin [place], [place], [place] and [place]. This disclosure is being madepursuant to the Care Everywhere program and may not contain all information available regarding this patient. Last updated 18.[facility] [employer] Social History Tobacco Use Types Packs/Day Years [...] 2002 ZOSTER VACCINE (1 of 2) 2002 DEPRESSION SCREENING 11/19/2024 COVID-19 VACCINE (1 - 2023-2 5 season) 2025 INFLUENZA VACCINE (#1) 2025 Respiratory Syncytial Virus [...] PHYSICIANS [employer] Care Teams Sheet Metal Duct Installer Apprentice Relationship Specialty Start Date End Date Praveen Wallace MD [address] [facility] [address] [place] [address] PCP - General 06/02/20
--- OUTSIDE RECORDS SUMMARY | 2025-09-11 12:23 | XMS_ITS | Encounter Summary ---
Author Organization [facility] Address [address] [place] [address] Care Team Providers Care Senior Quality Control Technician Name Role Phone Praveen Wallace MD Primary Care Provider [phone] Encounter Details Date Type Department Care Team (Late st Contact Info) Description 03/07/2022 Lab Requisition [facility] DermPath Lab [address] [place] [address] Oliver Escobar MD [address] [facility] [place] [address] Social History Tobacco Use Types [...] AM CDT) Case Report Dermatopathology Report Case: [id number] Authorizing Provider: Oliver Escobar MD Collected: 03/07/2022 12:00 AM Ordering Location: [facility] DermPath Lab Received: 03/07/2022 03:24 PM Pathologist: Ana Dial MD Specimens: A) - Skin, right posterior shoulder B) - Skin, right mid bell 4:02 PM T DERMATOPATHOLOGY LABORATORY Final Diagnosis Specimen A. SKIN, right posterior shoulder: DERMATOFIBROMA, SUPERFICIAL PORTIONS OF (D23.9) (see microscopic description) Specimen B. SKIN, right mid bell: BASAL CELL CARCINOMA, SUPERFICIAL MULTIFOCAL (C44.712) 4:02 PM CDT DERMATOPATHOLOGY LABORATORY at 1602 CDT Clinical History A: BCCA Path# [id number] B: BCCA Path# [id number] 4:02 PM CDT DERMATOPATHOLOGY LABORATORY Gross Description Specimen A: Received is one formalin filled container labeled with the patient's name and designated right posterior shoulder. The specimen consists of a shave biopsy measuring 3k0n7vi. Jar 0. Specimen B: Received is one formalin filled container labeled with the patient's name and designated right mid bell. The specimen consists of a shave biopsy measuring 9t6z7lt. Jar 0. 4:02 PM T DERMATOPATHOLOGY LABORATORY Microscopic Description Specimen A. SKIN, right posterior shoulder: There is epidermal hyperplasia. Within the dermis, there are superficial portions of fibrohistiocytic cells in haphazard array among coarse collagen bundles. Specimen B. SKIN, right mid bell: Attached to the undersurface of the epidermis, there are small aggregates of basaloid cells with a high nuclear to cytoplasmic ratio and peripheral palisading. 4:02 PM T DERMATOPATHOLOGY LABORATORY Disclaimer An external and internal positive and negative controls are appropriate for the histochemical, immunohistochemical and immunofluorescence stain(s) in this case (if any), except where stated explicitly. The performance characteristics of the stain(s) cited in this report were developed and its performance characteristic determined by the Dermatopathology Laboratory at [facility], directed by Dr. Ronny Mora. These tests need not be, and therefore are not, approved by the [place] Food and Drug Administration. The tests are used for clinical purposes. Billing Codes Specimen Charges Stain Charges 52647 32846 1 1 2 4:02 PM CDT DERMATOPATHOLOGY LABORATORY Embedded Images 04/21/202 2 4:02 PM CDT DERMATOPATHOLOGY LABORATORY Pathology/Cytology TISSUE SPECIMEN FROM SKIN / Unknown 03/07/2022 03/07/2022 3:24 PM CDT Miscellaneous samples (specimen) TISSUE SPECIMEN FROM SKIN / Unknown 03/07/2022 03/07/2022 3:24 PM CDT us Oliver Escobar MD LAB - PATHOLOGY/CYTOLOGY ORDER EDILBERTO Final Result DERMATOPATHOLOGY LABORATORY [facility] - Department of Dermatology Specialized Medicine [address] [place] [address], [address] [phone] documented in this encounter Visit Diagnoses Not on filedocumented in this encounter Care Teams Senior Quality Control Technician Relationship Specialty Start Date End Date Praveen Wallace MD [address] [facility] [address] [facility] [address] [place] [address] PCP - General 06/02/20 documented as of this encounter
--- OUTSIDE RECORDS SUMMARY | 2025-09-11 12:23 | XMS_ITS | Encounter Summary ---
Author Organization [facility] Address [address] [place] [address] Care Team Providers Care Pluck Trimmer Name Role Phone Praveen Wallace MD Primary Care Provider [phone] Encounter Details Date Type Department Care Team (Late st Contact Info) Description 04/06/[address] [facility] - DermPath Lab [address] [facility] [address] [facility] [place] [address] Oliver Escobar MD [address] [place] [address] Social History Tobacco Use Types [...] AM CDT) Case Report Dermatopathology Report Case: [id number] Authorizing Provider: Oliver Escobar MD Collected: 04/05/2023 12:00 AM Ordering Location: [facility] Derm[facility] Lab Received: 04/06/2023 07:31 AM Pathologist: Leticia Wheeler MD Specimen: Skin, left posterior knee 1:49 PM CDT DERMATOPATHOLOGY LABORATORY Final Diagnosis Specimen A. 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 The specimen consists of a shave biopsy measuring 9x6x2 mm. Jar 0. 1:49 PM CDT DERMATOPATHOLOGY LABORATORY Microscopic Description [...] characteristic determined by the Dermatopathology Laboratory at [facility], directed by Dr. Ronny Mora. These tests need not be, and therefore are not, approved by the [place] Food and Drug Administration. The tests are used for clinical purposes. Billing Codes Specimen Charges Stain Charges 16163 1 3 1:49 PM CDT DERMATOPATHOLOGY LABORATORY Embedded Images 1:49 PM CDT DERMATOPATHOLOGY LABORATORY Pathology/Cytolog y TISSUE SPECIMEN FROM SKIN / Unknown 04/05/2023 04/06/2023 7:31 AM CDT us Oliver Escobar MD LAB - PATHOLOGY/CYTOLOGY ORDER EDILBERTO Final Result DERMATOPATHOLOGY LABORATORY [facility] - Department of Dermatology [address] Floor [place], [place] [address] [place] [address] documented in this encounter Visit Diagnoses Not on filedocumented in this encounter Care Teams Pluck Trimmer Relationship Specialty Start Date End Date Praveen Wallace MD [address] [place] [id number] PCP - General 06/02/20 documented as of this encounter
--- OUTSIDE RECORDS SUMMARY | 2025-09-11 12:23 | XMS_ITS | Encounter Summary ---
Author Organization [facility] Address [address] [facility] [place] [address] Care Team Providers Care Direct Care Staffer Name Role Phone Praveen Wallace MD Primary Care Provider [phone] Encounter Details Date Type Department Care Team (Late st Contact Info) Description 06/20/2021 Lab Requisition [facility] DermPath Lab [address] [place] [address] Oliver Escobar MD [address] [facility] [place], [place] [id number] Social History Tobacco Use Types Packs/Day Years [...] AM CDT) Case Report Dermatopathology Report Case: [id number] Authorizing Provider: Oliver Escobar MD Collected: 06/16/2021 03:33 AM Ordering Location: [facility] DermPath Lab Received: 06/20/2021 08:48 AM Pathologist: Mone Mora MD Specimens: A) - Skin, right upper chest B) - Skin, left medial bell 3:01 PM T DERMATOPATHOLOGY LABORATORY Final Diagnosis Specimen A. SKIN, right upper chest: BASAL CELL CARCINOMA, SUPERFICIAL MULTIFOCAL (C44.519) Specimen B. SKIN, left medial bell: BASAL CELL CARCINOMA, NODULAR TYPE (C44.719) 3:01 PM T DERMATOPATHOLOGY LABORATORY at 1501 CDT Clinical History A: BCCA. Path# [id number]. B: BCCA. Path# [id number]. 3:01 PM CDT DERMATOPATHOLOGY LABORATORY Gross Description Specimen A: Received is one formalin filled container labeled with the patient's name and designated right upper chest. The specimen consists of a shave biopsy measuring 8a0d3mi. Jar 0. Specimen B: Received is one formalin filled container labeled with the patient's name and designated left medial bell. The specimen consists of a shave biopsy measuring 3m5y7iq. Jar 0. 3:01 PM CDT DERMATOPATHOLOGY LABORATORY Microscopic Description Specimen [...] characteristic determined by the Dermatopathology Laboratory at [facility], directed by Dr. Ronny Mora. These tests need not be, and therefore are not, approved by the [place] Food and Drug Administration. The tests are used for clinical purposes. Billing Codes Specimen Charges Stain Charges 02500 74214 1 1 3:01 PM CDT DERMATOPATHOLOGY LABORATORY Embedded Images 3:01 PM CDT DERMATOPATHOLOGY LABORATORY Pathology/Cytology TISSUE SPECIMEN FROM SKIN / Unknown 06/16/2021 3:33 AM CDT 06/20/2021 8:48 AM CDT Miscellaneous samples (specimen) TISSUE SPECIMEN FROM SKIN / Unknown 06/16/2021 3:33 AM CDT 06/20/2021 8:48 AM CDT us Oliver Escobar MD LAB - PATHOLOGY/CYTOLOGY ORDER EDILBERTO Final Result DERMATOPATHOLOGY LABORATORY [facility] - Department of Dermatology [facility] [address] [place] [address], [address] [phone] documented in this encounter Visit Diagnoses Not on filedocumented in this encounter Care Teams Direct Care Staffer Relationship Specialty Start Date End Date Praveen Wallace MD [address] [facility] [address] [place] [address] PCP - General 06/02/20 documented as of this encounter
--- OUTSIDE RECORDS SUMMARY | 2025-09-11 12:23 | XMS_ITS | Encounter Summary ---
Author Organization [facility] Address [address] [place] [address] Care Team Providers Care Principal Automation Engineer Name Role Phone Praveen Wallace MD Primary Care Provider Encounter Details Date Type Department Care Team (Late st Contact Info) Description 06/03/2020 Lab Requisition [facility] DermPath Lab [address] [place] [address] Oliver Escobar MD [address] [facility] [place] [address] Social History Tobacco Use Types Packs/Day Years [...] AM CDT) Case Report Dermatopathology Report Case: [id number] Authorizing Provider: Oliver Escobar MD Collected: 06/01/2020 12:00 AM Ordering Location: [facility] DermPath Lab Received: 06/03/2020 08:00 AM Pathologist: [...] characteristic determined by the Dermatopathology Laboratory at [facility], directed by Dr. Ronny Mora. These tests need not be, and therefore are not, approved by the [place] Food and Drug Administration. The tests are used for clinical purposes. Billing Codes Specimen Charges Stain Charges 10366 13334 1 1 0 4:53 PM CDT DERMATOPATHOLOGY LABORATORY Embedded Images 0 4:53 PM CDT DERMATOPATHOLOGY LABORATORY Pathology/Cytology TISSUE SPECIMEN FROM SKIN / Unknown 06/01/2020 06/03/2020 8:00 AM CDT Miscellaneous samples (specimen) TISSUE SPECIMEN FROM SKIN / Unknown 06/01/2020 06/03/2020 8:00 AM CDT us Oliver Escobar MD LAB - PATHOLOGY/CYTOLOGY ORDER EDILBERTO Final Result DERMATOPATHOLOGY LABORATORY [facility] - Department of Dermatology [facility]/[address] [phone] documented in this encounter Visit Diagnoses Not on filedocumented in this encounter Care Teams Principal Automation Engineer Relationship Specialty Start Date End Date Praveen Wallace MD [address] [facility] [address] [place] [address] PCP - General 06/02/20 documented as of this encounter
--- OUTSIDE RECORDS SUMMARY | 2025-09-11 12:23 | XMS_ITS | Encounter Summary ---
Author Organization [facility] Address [address] [facility] [place] [place] [address] Care Team Providers Care Fence Gate Assembler Name Role Phone Praveen Wallace MD Primary Care Provider [phone] Encounter Details Date Type Department Care Team (Late st Contact Info) Description 07/14/2020 Lab Requisition [facility] DermPath Lab [address] [place] [address] Oliver Escobar MD [address] [facility] [place] [address] Social History Tobacco Use Types Packs/Day Years [...] AM CDT) Case Report Dermatopathology Report Case: [id number] Authorizing Provider: Oliver Escobar MD Collected: 07/14/2020 12:00 AM Ordering Location: [facility] Care DermPath Lab Received: 07/14/2020 03:57 [...] of a non-oriented ellipse of skin measuring [id number]. The epidermal surface consists of a centrally [...] characteristic determined by the Dermatopathology Laboratory at [facility], directed by Dr. Ronny Mora. These tests need not be, and therefore are not, approved by the [place] Food and Drug Administration. The tests are used for clinical purposes. Billing Codes Specimen Charges Stain Charges 31796 1 0 4:26 PM CDT DERMATOPATHOLOGY LABORATORY Embedded Images 0 4:26 PM CDT DERMATOPATHOLOGY LABORATORY Pathology/Cytolog y TISSUE SPECIMEN FROM SKIN / Unknown 07/14/2020 07/14/2020 3:57 PM CDT us Oliver Escobar MD LAB - PATHOLOGY/CYTOLOGY ORDER EDILBERTO Final Result DERMATOPATHOLOGY LABORATORY [facility] - Department of Dermatology [employer]/[address] [phone] documented in this encounter Visit Diagnoses Not on filedocumented in this encounter Care Teams Fence Gate Assembler Relationship Specialty Start Date End Date Praveen Wallace MD [address] [facility] [address] [place] [address] PCP - General 06/02/20 documented as of this encounter
--- NOTE | 2025-09-11 12:25 | ECHO_ITS ---
Patient Info Name: Elif Orozco Age: 74 years : 1950 Gender: Female Ht: 25 in Wt: 287 lbs BSA: 1.73 m2 HR: 70 bpm BP: 134 / 70 mmHg Heart Rhythm: Sinus Rhythm Technical Quality: Good Exam Date: 09/11/2025 12:37 PM Patient Status: O Admit Date: 09/11/2025 Exam Type: CA echo doppler color flow Complete two-dimensional, color flow and Doppler transthoracic echocardiogram is performed. Rail Car Welder: Lauren Wade Attending Provider: Myrtle Aguilera Summary 1. Complete two-dimensional, color flow and Doppler transthoracic echocardiogram is performed. 2. Left ventricular chamber dimension is normal. 3. Left ventricular systolic function is normal, estimated at 60-65. 4. The left ventricular diastolic function is abnormal. 5. E/e' 13 is mildly elevated. 6. Left atrial chamber dimension is severely enlarged. 7. There is trace aortic valve regurgitation. 8. The mitral valve has moderately posterior prolapse. 9. There is moderate to severe mitral valve regurgitation. 10. There is mild tricuspid valve regurgitation. 11. No pulmonary hypertension, estimated pulmonary arterial systolic pressure is 34 mmHg. Left Ventricle E/e' 13 is mildly elevated. Left ventricular chamber dimension is normal. Left ventricular systolic function is normal, estimated at 60-65. The left ventricular diastolic function is abnormal. Right Ventricle Right ventricular chamber dimension is normal. Right ventricular systolic function is normal and with normal TAPSE 2.5 cm. Left Atria Left atrial chamber dimension is severely enlarged. Right Atria Right atrial chamber dimension is normal. Aortic Valve The aortic valve is trileaflet. There is no aortic valve stenosis. There is trace aortic valve regurgitation. Pulmonic Valve There is no pulmonic regurgitation. Mitral Valve The mitral valve has moderately posterior prolapse. There is no mitral valve stenosis. There is moderate to severe mitral valve regurgitation. Tricuspid Valve There is mild tricuspid valve regurgitation. No pulmonary hypertension, estimated pulmonary arterial systolic pressure is 34 mmHg. Pericardium/Pleural There is no pericardial effusion. Inferior Vena Cava Normal inferior vena cava with >50% collapse upon inspiration consistent with normal right atrial pressure, 5 mmHg. Aorta The aortic root size at the sinus of Valsalva is normal. Left Ventricular Outflow Tract Name Value Normal LVOT 2D LVOT Diameter 2.0 cm LVOT Doppler LVOT Peak Velocity 129 cm/s LVOT Peak Gradient 6 mmHg LVOT Mean Gradient 3 mmHg LVOT VTI 21 cm LVOT VTI/AV VTI Ratio 0.9 LVOT Stroke Volume 63 ml LVOT CO 4.2 l/min LVOT CI 2.4 l/min/m2 Pulmonic Valve Name Value Normal RVOT Doppler RVOT Peak Velocity 100 cm/s RVOT Peak Gradient 4 mmHg PV Doppler PV Peak Velocity 100 cm/s PV Peak Gradient 4 mmHg Mitral Valve Name Value Normal MV Diastolic Function MV E Peak Velocity 106 cm/s MV A Peak Velocity 89 cm/s MV E/A 1.2 MV Decel Time (PW) 209 ms MV Annular TDI MV E/e' (Septal) 15.4 MV E/e' (Lateral) 12.0 MV E/e' (Average) 13.7 Tricuspid Valve Name Value Normal TV Regurgitation Doppler TR Peak Velocity 268 cm/s TR Peak Gradient 29 mmHg Estimated PAP/RSVP RA Pressure 5 mmHg <=5 PA Systolic Pressure 34 mmHg <36 RV Systolic Pressure 34 mmHg <36 TV Annular TDI TV Lateral Violet[place] s' Velocity 11.7 cm/s >=9.5 Aorta Name Value Normal Ascending Aorta Ao Root Diameter (MM) 2.6 cm Ao Root Diam Index (MM) 1.5 cm/m2 Aortic Valve Name Value Normal AV Doppler AV Peak Velocity 147 cm/s AV Peak Gradient 8 mmHg AV Mean Gradient 3 mmHg AV VTI 23 cm AV Area (Cont Eq VTI) 2.7 cm2 >=3.0 AV Area (Cont Eq Jerson) 2.7 cm2 AV DI (Jerson) 0.88 AV Regurgitation 2D LVOT Area 3.1 cm2 Ventricles Name Value Normal LV Dimensions 2D/MM IVS Diastolic Thickness (2D) 0.7 cm 0.6-1.0 LVID Diastole (2D) 5.1 cm 3.8-5.2 LVIW Diastolic Thickness (2D) 0.7 cm 0.6-0.9 LVID Systole (2D) 3.3 cm 2.2-3.5 LVOT Diameter 2.0 cm LV Mass (2D Cubed) 119.78 g 67.00-162.00 LV Mass Index (2D Cubed) 69 g/m2 43-95 Relative Wall Thickness (2D) 0.27 <=0.42 LV Fractional Shortening/Ejection Fraction 2D/MM LV Fractional Shortening (2D) 36 % 27-45 LV EF (2D Teichholz) 65 % LV Diastolic Volume (4C MOD) 70 ml LV EF (4C MOD) 69 % LV Diastolic Volume (2C MOD) 73 ml LV EF (2C MOD) 65 % LV Diastolic Volume (BP MOD) 71 ml 46-106 LV Diastolic Volume Index (BP MOD) 41 ml/m2 29-61 LV Systolic Volume (BP MOD) 24 ml 14-42 LV Systolic Volume Index (BP MOD) 14 ml/m2 8-24 LV EF (BP MOD) 66 % 54-74 LV Diastolic Length (4C) 7.9 cm LV Systolic Length (4C) 6.2 cm LV Stroke Volume (4C MOD) 48 ml Atria Name Value Normal LA Dimensions LA Dimension (MM) 4.6 cm 2.7-3.8 LA Volume (4C A-L) 94 ml LA Volume (BP A-L) 98 ml RA Dimensions RA Systolic Major [place] Length (4C) 4.0 cm 2.2-2.8 RA Area (4C) 10.5 cm2 <=18.0 Report Signatures
== END 2025-09-11 12:19 | disposition home or self-care (01) ==
LOC: ANHCARD 12:21
PROVIDERS: PCP Family Medicine; Visit Provider Physician Assistant
DX: R93.1 Abnormal findings on diagnostic imaging of heart and coronary circulation (principal); R01.1 Cardiac murmur, unspecified
CPT/HCPCS: 93306

== ENCOUNTER 2025-11-10 10:10 | Outpatient (CLI) | payer MEDICARE, OTHER, SELFPAY ==
--- NOTE | ~2025-11-10 | DEXA_ITS ---
Bone Density Report Name: YULIANA BORDEN Age: 74 Sex: Female Ethnicity: White Date of : 1950 Indication: postmenopausal osteoporosis; hysterectomy; Referring Provider: BRITTANY EVANGELISTA Study: Bone densitometry was performed. Exam Date: November 10, 2025 Accession number: [id number] Bone Density: Region BMD T-score Z-score Classification AP Spine(L1-L4) 0.637 -3.7 -1.4 Osteoporosis Femoral Neck (Left) 0.506 -3.1 -1.1 Osteoporosis Total Hip (Left) 0.531 -3.4 -1.7 Osteoporosis Femoral Neck (Right) 0.506 -3.1 -1.1 Osteoporosis Total Hip (Right) 0.533 -3.4 -1.7 Osteoporosis Total Hip Mean 0.532 -3.4 -1.7 Osteoporosis World Health Organization criteria for BMD impression classify patients as: Normal (T-score at or above -1.0), Osteopenia (T-score between -1.0 and -2.5), or Osteoporosis (T-score at or below -2.5). 10-year Fracture Risk: FRAX not reported because: Some T-score for Spine Total or Hip Total or Femoral Neck at or below -2.5 Previous Exams: -- Region Exam Age BMD T-score BMD Change BMD Change Date g/cm2 vs Baseline vs Previous -- AP Spine (L1-L4) 11/10/2025 74 0.637 -3.7 -4.8%* -4.8%* 03/03/2022 71 0.669 -3.4 Total Hip(Left) 11/10/2025 74 0.531 -3.4 -14.1%* -14.1%* 03/03/2022 71 0.619 -2.7 Total Hip(Right) 11/10/2025 74 0.533 -3.4 -13.1%* -13.1%* 03/03/2022 71 0.613 -2.7 -- *Denotes significance at 95% confidence level, LSC for AP Spine = 0.022 g/cm2, LSC for Total Hip = 0.027 g/cm2 Clinical Information Provided by Patient: Has used the following medications: Actonel (i.e. risedronate), Fosamax (i.e. alendronate), Calcium Has the following medical conditions: Hysterectomy Patient maximum height was 64 Menopause Age: 42 No regular weight bearing exercise Drinks caffeinated beverages Onset of menses at age 15 Number of children 0 Impression: The patient has osteoporosis, based on the Total Spine T-score. The BMD for the AP Spine (L1-L4) decreased, changing by -4.8% since the last DXA exam. The BMD for the Total Hip(Left) decreased, changing by -14.1% since the last DXA exam. The BMD for the Total Hip(Right) decreased, changing by -13.1% since the last DXA exam. Discussion: INCREASED RISK OF FRACTURE. BONE DENSITY IS UNDESIRABLY LOW AT ONE OR MORE SKELETAL SITES, CONSISTENT WITH POSTMENOPAUSAL OSTEOPOROSIS. This patient's lowest T-score meets the World Health Organization's (WHO) criteria for osteoporosis at one or more sites (T-score -2.5 or below). In untreated patients, the risk of osteoporotic fracture increases approximately two-fold for each 1.0 SD decrease in T-score. Low bone density is not the only risk factor for fracture; also consider factors such as patient's age, frailty or poor health, risk of falling, risk of injury, previous osteoporotic fracture, family history of osteoporosis, cigarette smoking, low body weight, etc. Not everyone with low bone mineral density has osteoporosis; osteomalacia and other metabolic bone disorders should also be considered. Patients who have osteoporosis should be evaluated for specific diseases and conditions (secondary causes) that may cause or contribute to bone loss. The [place] Association of Clinical Endocrinologists (AACE) and National Osteoporosis Foundation (NOF) recommend pharmacologic intervention for all postmenopausal women whose T-score is in this range. The patient should follow a healthful lifestyle (good nutrition with adequate calcium and vitamin D, and appropriate weight-bearing exercise). Follow-Up: Consider a repeat BMD and Vertebral Fracture Assessment (VFA) exam in 2 years or sooner if medically necessary, to reassess this patient's status. Reported by: HUY on 11/10/2025 10:51:00 AM. Reviewed, dictated and finalized at location A.
== END 2025-11-10 10:11 | disposition home or self-care (01) ==
LOC: MICIMG 10:10
PROVIDERS: PCP Family Medicine; Visit Provider Physician Assistant
DX: M81.0 Age-related osteoporosis without current pathological fracture (principal); Z78.0 Asymptomatic menopausal state
CPT/HCPCS: 77080